=== PATIENT | male | born 1950 | race Caucasian/White ===

== ENCOUNTER 2019-04-28 22:29 | Inpatient (IN) | payer MEDICARE ==
[~2019-04-28] VITALS: Ht 180.3 cm; Wt 83.6 kg
[2019-04-28] MEDS ORDERED: LOTENSIN20 MG PO (22:34)
[2019-04-28] MEDS ORDERED: NORVASC2.5 MG PO (22:34)
[2019-04-28] MEDS ORDERED: HUMULIN 70100 UNIT/1 SC (22:35)
[2019-04-28] MEDS ORDERED: JARDIANCE25 MG PO (22:35)
[2019-04-28] MEDS ORDERED: PRAVACHOL40 MG PO (22:36)
[2019-04-28] MEDS ORDERED: GLUCOPHAGE500 MG PO (22:36)
[2019-04-28 22:56] LABS: HEMATOCRIT 55.1 % (42.0-54.0); HEMOGLOBIN 18.2 g/dL (13.5-17.5); LYMPHOCYTES 10.5 % (15-50); MCH 30.2 pg (26.0-34.0); MCV 91.4 fL (80.0-100.0); NEUTROPHILS 84.3 % (40-80); PLATELET COUNT 215 10x3/uL (130-400); RBC 6.03 10x6/uL (4.20-6.10); RDW 13.7 % (11.5-14.5); WBC 15.2 10x3/uL (4.8-10.8)
[2019-04-28 23:04] LABS: CALC OSMOLALITY 290 mosm/kg (275-300); CALCIUM 8.9 mg/dL (8.5-10.1); CARBON DIOXIDE 18.2 mmol/L (21.0-32.0); CHLORIDE - SERUM 102 mmol/L (98-107); CREATININE - SERUM 1.5 mg/dL (0.6-1.3); GLUCOSE 224 mg/dL (74-106); POTASSIUM - SERUM 4.3 mmol/L (3.5-5.1); SODIUM 140 mmol/L (136-145); UREA NITROGEN 27 mg/dL (7-18); eGFR NON AFRICAN AMERICAN 49 mL/min (90-120)
[2019-04-28 23:10] LABS: ALBUMIN 3.1 g/dL (3.4-5.0); ALKALINE PHOSPHATASE 94 U/L (46-116); ALT (SGPT) 18 U/L (10-68); BILIRUBIN - TOTAL 0.55 mg/dL (0.2-1.3); MAGNESIUM - SERUM 1.7 mg/dL (1.8-2.4); PROTEIN - SERUM 6.6 g/dL (6.4-8.2)
[2019-04-28 23:19] LABS: KETONE - SERUM SMALL mg/dL (NEGATIVE)
[2019-04-29] VITALS (25 sets, daily range): BP systolic 107–151; BP diastolic 65–91; Ht 180.3 cm; Wt 83.6 kg
--- NOTE | 2019-04-29 00:20 | NUR ---
RECEIVED PT ON STRETCHER FROM BETHEL MALCOLM. PT WAS ABLE TO SCOOT SELF FROM STRETCHER TO BED WITH MIN ASSISTANCE. PT ALERT, ORIENTED, ANSWERS QUESTIONS APPROPRIATELY. VSS, NO SIGNS OF ACUTE DISTRESS NOTED. 20 G L AC PIV INFUSING NS @ 75 PER ORDERS. PT DENIES ANY NEEDS AT THIS TIME. CALL LIGHT IN REACH, BED IN LOWEST POSITION. WILL CONTINUE TO MONITOR.
--- NOTE | 2019-04-29 01:30 | NUR ---
D5 1/2 NS @ 100 ML/H AND INSULIN GTT STARTED, SEE FLOWSHEET.
--- NOTE | 2019-04-29 02:15 | NUR ---
PT ATTEMPTING TO GET OOB TO STAND AT BEDSIDE AND USE URINAL. ASSISTED PT TO STANDING POSITION AND HE WAS UNSTEADY ON HIS FEET. I INSTRUCTED HIM TO SIT ON SIDE OF BED AND USE URINAL AND TO CALL FOR HELP PRIOR TO GETTING OOB. URINE COLLECTED AND SENT TO LAB. PT ASSISTED BACK IN BED AND BED ALARM ON AND CALL LIGHT IN REACH.
[2019-04-29 02:36] LABS: APPEARANCE CLEAR (CLEAR); COLOR YELLOW (YELLOW)
[2019-04-29 02:37] LABS: BILIRUBIN NEGATIVE (NEGATIVE); GLUCOSE 1000 mg/dL (NEGATIVE); KETONE LARGE mg/dL (NEGATIVE); NITRITE NEGATIVE (NEGATIVE); PROTEIN NEGATIVE (NEGATIVE); UROBILINOGEN NORMAL (NORMAL)
--- NOTE | 2019-04-29 03:00 | NUR ---
REASSESSMENT COMPLETE, SEE FLOWSHEET. ASSISTED PT TO SIDE OF BED TO USE URINAL. 250 ML CLEAR YELLOW UOP. PT DENIES ANY OTHER NEEDS AT THIS TIME.
[2019-04-29 04:25] LABS: BASOPHILS 0.1 % (0-2); EOSINOPHILS 0 % (0-7); HEMATOCRIT 51.6 % (42.0-54.0); HEMOGLOBIN 17.7 g/dL (13.5-17.5); IMMATURE GRANULOCYTES 0.4 % (0-5); LYMPHOCYTES 10.7 % (15-50); MCH 31.4 pg (26.0-34.0); MCHC 34.3 g/dL (31.0-37.0); MCV 91.7 fL (80.0-100.0); MEAN PLATELET VOLUME 10.8 fL (7.4-10.4); MONOCYTES 8.7 % (2-11); NEUTROPHILS 80.1 % (40-80); PLATELET COUNT 201 10x3/uL (130-400); RBC 5.63 10x6/uL (4.20-6.10); RDW 13.4 % (11.5-14.5); WBC 17.2 10x3/uL (4.8-10.8)
[2019-04-29 04:53] LABS: ANION GAP 15.4 mmol/L (8-16); CARBON DIOXIDE 23.4 mmol/L (21.0-32.0); CREATININE - SERUM 1.1 mg/dL (0.6-1.3); MAGNESIUM - SERUM 1.8 mg/dL (1.8-2.4); PHOSPHOROUS 2.3 mg/dL (2.5-4.9); POTASSIUM - SERUM 3.8 mmol/L (3.5-5.1)
--- NOTE | 2019-04-29 05:00 | NUR ---
PT RESTING COMFORTABLY IN BED. CALL LIGHT IN REACH, BED IN LOWEST POSITION, BED ALARM TURNED ON. WILL CONTINUE TO MONITOR.
--- NOTE | 2019-04-29 08:39 | NUR ---
UP IN BED AWAKE AT THIS TIME. VSS. NO ACUTE DISTRESS NOTED. CALL LIGHT IN REACH. WILL CONTINTUE PLAN OF CARE.
--- NOTE | 2019-04-29 10:40 | NUR ---
NO ACUTE DISTRESS NOTED. NO CHANGE. VSS. CALL LIGHT IN REACH. WILL CONTINUE PLAN OF CARE.
[2019-04-29 12:06] LABS: ANION GAP 10.3 mmol/L (8-16); CALCIUM 8.8 mg/dL (8.5-10.1); CARBON DIOXIDE 28.2 mmol/L (21.0-32.0); CREATININE - SERUM 1.1 mg/dL (0.6-1.3); POTASSIUM - SERUM 3.5 mmol/L (3.5-5.1)
--- NOTE | 2019-04-29 12:58 | NUR ---
WILL ADMIN SCHEDULED PROTONIX WHEN RECIEVE FROM PHARMACY
--- NOTE | 2019-04-29 13:30 | NUR ---
PER DR RALPH, DC INSULIN GTT AND CHANGE TO SLIDING SCALE. PHYSICIAN STATED HE WILL PLACE ORDERS.
--- NOTE | 2019-04-29 15:18 | NUR ---
NOTED ORDER FOR SPUTUM COLLECTION. SPUTUM CUP AT BEDSIDE. PT STATES HE IS NOT CURRENTLY HAVING PRODUCTIVE SPUTUM. VSS. NO ACUTE DISTRESS NOTED. WILL CONTINUE PLAN OF CARE.
--- NOTE | 2019-04-29 17:31 | NUR ---
PT USED CALL LIGHT FOR URINAL. 350ML YELLOW URINE EMPTIED FROM URINAL. CALL LIGHT IN REACH. VSS. WILL CONTINUE PLAN OF CARE.
[2019-04-29 17:44] LABS: CALCIUM 8.5 mg/dL (8.5-10.1); CARBON DIOXIDE 26.8 mmol/L (21.0-32.0); CREATININE - SERUM 1.3 mg/dL (0.6-1.3); POTASSIUM - SERUM 3.8 mmol/L (3.5-5.1)
--- NOTE | 2019-04-29 18:27 | NUR ---
BATH OFFERED TO PT AT THIS TIME, HE STATED HE DID NOT FEEL THAT HE NEEDED TO GET CLEANED UP OR A BATH AT THIS TIME. VSS. NO ACUTE DISTRESS NOTED. WILL CONTINUE PLAN OF CARE.
--- NOTE | 2019-04-29 19:30 | NUR ---
RECEIVED CARE OF PT, ASSESSMENT PER FLOWSHEET. HR SR WITH PAC'S ON CM, PPP, DIET SPRITE PROVIDED PER REQUEST, BED LOW, ALARM ON, CALL LIGHT IN REACH, PT DENIES ANY NEEDS AT THIS TIME.
--- NOTE | 2019-04-29 21:20 | NUR ---
NO VISITORS PRESENT AT THIS TIME.
[2019-04-29 23:16] LABS: CALC OSMOLALITY 283 mosm/kg (275-300); CALCIUM 8.3 mg/dL (8.5-10.1); CARBON DIOXIDE 26.5 mmol/L (21.0-32.0); CHLORIDE - SERUM 106 mmol/L (98-107); GLUCOSE 165 mg/dL (74-106); POTASSIUM - SERUM 3.6 mmol/L (3.5-5.1); SODIUM 139 mmol/L (136-145); UREA NITROGEN 19 mg/dL (7-18); eGFR NON AFRICAN AMERICAN 78 mL/min (90-120)
--- NOTE | 2019-04-29 23:30 | NUR ---
REASSESSMENT PER FLOWSHEET, NO ACUTE CHANGES NOTED, CONT POC.
[2019-04-30] VITALS (13 sets, daily range): BP systolic 99–153; BP diastolic 49–82
--- NOTE | 2019-04-30 00:15 | NUR ---
PT INCONTINENT OF STOOL AND URINE, COMPLETE BED CHANGE AND CHG BATH DONE. PT ALERT AND ABLE TO ANSWER QUESTIONS BUT DISORIENTED TO SITUATION AND UNSURE TO HOW AND WHY HE WAS INCONTINENT. ASSISTED BACK TO BED, DIET SPRITE PROVIDED PER REQUEST, DENIES ANY NEEDS AT THIS TIME, VSS.
--- NOTE | 2019-04-30 02:16 | NUR ---
PT RESTING IN BED WITH EYES CLOSED, VSS, CONT TO MONITOR.
[2019-04-30 03:46] LABS: BASOPHILS 0.2 % (0-2); EOSINOPHILS 0.5 % (0-7); HEMATOCRIT 47.5 % (42.0-54.0); HEMOGLOBIN 15.8 g/dL (13.5-17.5); IMMATURE GRANULOCYTES 0.2 % (0-5); LYMPHOCYTES 21.6 % (15-50); MCH 30.7 pg (26.0-34.0); MCHC 33.3 g/dL (31.0-37.0); MCV 92.4 fL (80.0-100.0); MEAN PLATELET VOLUME 11.1 fL (7.4-10.4); MONOCYTES 6.1 % (2-11); NEUTROPHILS 71.4 % (40-80); RBC 5.14 10x6/uL (4.20-6.10); RDW 13.6 % (11.5-14.5)
[2019-04-30 03:48] LABS: PLATELET COUNT 144 10x3/uL (130-400); WBC 12.3 10x3/uL (4.8-10.8)
[2019-04-30 04:01] LABS: CALC OSMOLALITY 282 mosm/kg (275-300); CALCIUM 8.5 mg/dL (8.5-10.1); CARBON DIOXIDE 25.5 mmol/L (21.0-32.0); CHLORIDE - SERUM 105 mmol/L (98-107); CREATININE - SERUM 0.8 mg/dL (0.6-1.3); GLUCOSE 148 mg/dL (74-106); MAGNESIUM - SERUM 1.7 mg/dL (1.8-2.4); PHOSPHOROUS 2.2 mg/dL (2.5-4.9); POTASSIUM - SERUM 3.8 mmol/L (3.5-5.1); SODIUM 139 mmol/L (136-145); UREA NITROGEN 17 mg/dL (7-18); eGFR NON AFRICAN AMERICAN > 90 mL/min (90-120)
--- NOTE | 2019-04-30 04:05 | NUR ---
NEURO CHECK COMPLETED PER MD ORDER, PT SLEEPING UPON ENTRANCE INTO ROOM, AWAKENS EASILY TO VERBAL STIMULI, ORIENTED X 4, DENIES ANY NEEDS AT THIS TIME.
--- NOTE | 2019-04-30 08:15 | NUR ---
UP IN BED AT THIS TIME. VSS. NO ACUTE DISTRESS NOTED. PT ALERT AND ORIENTED. CALL LIGHT IN REACH. WILL CONTINUE PLAN OF CARE.
--- NOTE | 2019-04-30 10:17 | NUR ---
RESTING IN BED AT THIS TIME. VSS. NO ACUTE DISTRESS NOTED. RESPIRATIONS STEADY AND UNLABORED RATE. AWAKENS EASILY WHEN SPOKEN TO. WILL CONTINUE PLAN OF CARE.
[2019-04-30 11:42] LABS: CALC OSMOLALITY 279 mosm/kg (275-300); CALCIUM 8.3 mg/dL (8.5-10.1); CARBON DIOXIDE 25.7 mmol/L (21.0-32.0); CHLORIDE - SERUM 105 mmol/L (98-107); GLUCOSE 186 mg/dL (74-106); POTASSIUM - SERUM 3.9 mmol/L (3.5-5.1); SODIUM 137 mmol/L (136-145); UREA NITROGEN 16 mg/dL (7-18); eGFR NON AFRICAN AMERICAN 78 mL/min (90-120)
--- NOTE | 2019-04-30 12:35 | NUR ---
UP IN BED EATING LUNCH AT THIS TIME. VSS. NO ACUTE DISTRESS NOTED. WILL CONTINUE PLAN OF CARE.
--- NOTE | 2019-04-30 14:32 | NUR ---
PER DR RALPH, DC PT HOME.
--- NOTE | 2019-04-30 15:30 | NUR ---
PT DISCHARGED HOME AT THIS TIME VIA PERSONAL VEHICLE WITH ALL PERSONAL ITEMS WITH MOTHER AND SISTER, WITH DISCHARGE PAPERWORK. PT STATES UNDERSTANDING TO MAKE A FOLLOWUP APPT WITH PCP IN 1 WEEK. LT AC AND LT FOREARM IVS DCD, CATHETER TIPS INTACT. NO ACUTE DISTRESS NOTED. NO FUTHER ACTIONS.
== END 2019-04-30 15:35 | disposition home or self-care (01) | DRG 638 ==
LOC: D.ER 22:29 → D.ICU 23:19
PROVIDERS: Emergency Medicine; ADMIT Internal Medicine Nephrology; ATTEND Internal Medicine Nephrology
DX: E11.10 Type 2 diabetes mellitus with ketoacidosis without coma (principal); N17.9 Acute kidney failure, unspecified; F17.203 Nicotine dependence unspecified, with withdrawal; D72.829 Elevated white blood cell count, unspecified; I10 Essential (primary) hypertension; D75.1 Secondary polycythemia